=== PATIENT | female | born 1960 | race African-American/Black ===

== ENCOUNTER 2017-07-24 01:19 | Inpatient (IN) | payer SELFPAY ==
[~2017-07-24] VITALS: Ht 162.6 cm; Wt 78.0 kg
[2017-07-24 01:51] VITALS: BP 131/72; PULSE 84; TEMP 98.1; O2SAT 99
--- NOTE | 2017-07-24 05:04 | PD ---
HPI Chief Complaint: Fall Time Seen by Provider: 04:40 Travel History International Travel<30 days: No Contact w/Intl Traveler<30days: No Traveled to known affect area: No History of Present Illness HPI 57-year-old female patient presents to the ER today, states that she has had a 1 year history of lower back pains, told that she has arthritis in her hips, and states that she has difficulty getting up when she bends down to get something. 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 She denies any incontinence, fevers, or other issues. She states that it has been getting so bad that she needs help to get in and out of cars, and to get up when she bends down. She denies any head injury or other injuries. She states that she felt like her legs gave out on her, states that she has been getting weaker and weaker. Modifying Factors: None Associated Signs & Symptoms: Acute on chronic back pain, legs gave out, left hip injury and have head injury Risk Factors: Chronic back pain PFSH Past Medical History High Cholesterol: Yes Diabetes: Yes Patient Takes Glucophage: Yes Diminished Hearing: No Hypertension: Yes Social History Alcohol Use: Yes (WEEKLY ) Tobacco Use: No Substance Use: No Allergies-Medications (Allergen,Severity, Reaction): Coded Allergies: No Known Allergies (Unverified , 07/24/17) Review of Systems Except as stated in HPI: all other systems reviewed are Neg Physical Exam Narrative GENERAL: Well-developed middle-aged -[place]ian female patient currently in mild distress. Awake and oriented 3. SKIN: Focused skin assessment warm/dry. HEAD: Atraumatic. Normocephalic. EYES: Pupils equal and round. No scleral icterus. No injection or drainage. ENT: No nasal bleeding or discharge. Mucous membranes pink and moist. NECK: Trachea midline. No JVD. Supple. CARDIOVASCULAR: Regular rate and rhythm. No murmur appreciated. RESPIRATORY: No accessory muscle use. Clear to auscultation. Breath sounds equal bilaterally. GASTROINTESTINAL: Abdomen soft, non-tender, nondistended. Hepatic and splenic margins not palpable. Pelvis: Stable, mildly tender to palpation in the left hip area. MUSCULOSKELETAL: No obvious deformities. No clubbing. No cyanosis. No edema. EXTREMITIES: No clubbing, cyanosis, or edema. No joint tenderness, effusion, or edema noted. Mildly tender to palpation of the left hand dorsum without obvious contusion or lacerations. No bony tenderness or deformities.. NEUROLOGICAL: Awake and alert. No obvious cranial nerve deficits. Motor grossly within normal limits. Normal speech. PSYCHIATRIC: Appropriate mood and affect; insight and judgment normal. Data Data Last Documented VS Vital Signs Date Time Temp Pulse Resp B/P (MAP) Pulse Ox O2 Delivery O2 Flow Rate FiO2 07/24/17 01:51 98.1 84 131/72 (91) 99 Orders Orders Hand, Complete ([id number]) (07/24/17 04:40) Hip, Uni(Ap&Lat) W Ap Pelvis (07/24/17 04:40) Mri T Spine W/O Contrast (07/24/17 05:24) Mri L Spine W/O Contrast (07/24/17 05:24) Tramadol (Ultram) (07/24/17 05:30) MDM Medical Decision Making Medical Screen Exam Complete: Yes Emergency Medical Condition: Yes Medical Record Reviewed: Yes Interpretation(s) Last 24 hours Impressions Hip and Pelvis X-Ray 07/24/17439 Signed Impressions: Service Date/Time: Monday, July 24, 2017 04:58 - CONCLUSION: 1. Intact pelvis and left hip. 2. Mild bilateral hip osteoarthritis. 3. Moderate osteoarthritis of the pubic symphysis. Adryan Vee MD Hand X-Ray 07/24/17439 Signed Impressions: Service Date/Time: Monday, July 24, 2017 05:01 - CONCLUSION: Intact left hand. Adryan Vee MD Differential Diagnosis Contusions versus fractures Narrative Course X-rays not show any signs of acute injuries. MRI was ordered due to her weakness. Physician Communication Physician Communication Case is signed out to Dr. Nice at 7 AM pending MRI. If unremarkable for acute issues, can be released with follow-up to primary care doctor. Diagnosis Primary Impression: Fall Additional Impressions: Injury of left hip Acute exacerbation of chronic low back pain Condition: Stable Florentino Vega MD Jul 24, 2017 05:04
--- NOTE | 2017-07-24 05:18 | RADRPT ---
EXAM DATE/TIME: 07/24/2017 04:58 [facility] COMPARISON: No previous studies available for comparison. INDICATIONS : Fall. Left hip pain. MEDICAL HISTORY : None. SURGICAL HISTORY : None. ENCOUNTER: Initial ACUITY: 1 day PAIN SCORE: 7/10 LOCATION: Left pelvis FINDINGS: The bony pelvis is intact and has normal morphology. No subluxation or fracture of either hip. There is mild bilateral hip osteoarthritis. Mild bilateral subchondral sclerosis. There is subchondral cyst ic change of the left acetabulum. Radiographic appearance of the soft tissues within normal limits. Moderate degenerative changes of the pubic symphysis. CONCLUSION: 1. Intact pelvis and left hip. 2. Mild bilateral hip osteoarthritis. 3. Moderate osteoarthritis of the pubic symphysis. Adryan Vee MD on July 24, 2017 at 5:15 Board Certified Radiologist. This report was verified electronically.
--- NOTE | 2017-07-24 05:19 | RADRPT ---
EXAM DATE/TIME: 07/24/2017 05:01 [facility] COMPARISON: No previous studies available for comparison. INDICATIONS : Fall. Left hand pain. MEDICAL HISTORY : None. SURGICAL HISTORY : None. ENCOUNTER: Initial ACUITY: 1 day PAIN SCORE: 6/10 LOCATION: Left upper extremity FINDINGS: Three view examination of the left hand demonstrates no soft tissue swelling, dislocation, or fractur e. The carpal bones appear intact. The interphalangeal and metacarpophalangeal joints are intact. Bony mineralization is normal. CONCLUSION: Intact left hand. Adryan Vee MD on July 24, 2017 at 5:17 Board Certified Radiologist. This report was verified electronically.
[2017-07-24] MEDS ORDERED: traMADol HCL 50 MG TAB PO ONE (05:30)
--- NOTE | 2017-07-24 07:07 | PD ---
Physical Exam Date Seen by Provider: Jul 24, 2017 Time Seen by Provider: 07:06 Narrative The patient is a 57 year-old female who was initially evaluated by the previous physician. Please refer to the initial history, physical, diagnostic evaluation , treatment modality plan. The patient was signed out at 7 AM with MRI of the T -spine and L-spine pending. Data Data Last Documented VS Vital Signs Date Time Temp Pulse Resp B/P (MAP) Pulse Ox O2 Delivery O2 Flow Rate FiO2 07/24/17 12:54 18 07/24/17 12:09 138/78 (98) 07/24/17 07:14 83 99 Room Air 07/24/17 01:51 98.1 Orders Orders Hand, Complete ([id number]) (07/24/17 04:40) Hip, Uni(Ap&Lat) W Ap Pelvis (07/24/17 04:40) Mri T Spine W/O Contrast (07/24/17 05:24) Mri L Spine W/O Contrast (07/24/17 05:24) Tramadol (Ultram) (07/24/17 05:30) Complete Blood Count With Diff (07/24/17 07:05) Comprehensive Metabolic Panel (07/24/17 07:05) Urinalysis - C+S If Indicated (07/24/17 07:05) Creatine Kinase (Cpk) (07/24/17 07:05) CKMB (07/24/17 08:55) CKMB% (07/24/17 08:55) Sodium Chlor 0.9% 1000 Ml Inj (Ns 1000 M (07/24/17 13:00) Labs Laboratory Tests Test 07/24/17 08:55 07/24/17 09:00 White Blood Count 4.1 TH/MM3 Red Blood Count 3.94 MIL/MM3 Hemoglobin 12.5 GM/DL Hematocrit 37.5 % Mean Corpuscular Volume 95.2 FL Mean Corpuscular Hemoglobin 31.6 PG Mean Corpuscular Hemoglobin Concent 33.2 % Red Cell Distribution Width 16.2 % Platelet Count 305 TH/MM3 Mean Platelet Volume 7.6 FL Neutrophils (%) (Auto) 43.8 % Lymphocytes (%) (Auto) 49.6 % Monocytes (%) (Auto) 5.5 % Eosinophils (%) (Auto) 0.7 % Basophils (%) (Auto) 0.4 % Neutrophils # (Auto) 1.8 TH/MM3 Lymphocytes # (Auto) 2.0 TH/MM3 Monocytes # (Auto) 0.2 TH/MM3 Eosinophils # (Auto) 0.0 TH/MM3 Basophils # (Auto) 0.0 TH/MM3 CBC Comment DIFF FINAL Differential Comment Blood Urea Nitrogen 7 MG/DL Creatinine 0.45 MG/DL Random Glucose 117 MG/DL Total Protein 7.3 GM/DL Albumin 3.5 GM/DL Calcium Level 8.9 MG/DL Alkaline Phosphatase 71 U/L Aspartate Amino Transf (AST/SGOT) 151 U/L Alanine Aminotransferase (ALT/SGPT) 129 U/L Total Bilirubin 0.4 MG/DL Sodium Level 144 MEQ/L Potassium Level 3.5 MEQ/L Chloride Level 108 MEQ/L Carbon Dioxide Level 26.6 MEQ/L Anion Gap 9 MEQ/L Estimat Glomerular Filtration Rate 174 ML/MIN Total Creatine Kinase 87529 U/L Creatine Kinase MB 412.2 NG/ML Creatine Kinase MB % 3.6 % Urine Color YELLOW Urine Turbidity CLEAR Urine pH 5.5 Urine Specific [place] 1.021 Urine Protein NEG mg/dL Urine Glucose (UA) NEG mg/dL Urine Ketones NEG mg/dL Urine Occult Blood NEG Urine Nitrite NEG Urine Bilirubin NEG Urine Urobilinogen LESS THAN 2.0 MG/DL Urine Leukocyte Esterase NEG Urine RBC LESS THAN 1 /hpf Urine WBC 2 /hpf Urine Squamous Epithelial Cells 2 /hpf Urine Bacteria OCC /hpf Urine Mucus MOD /lpf Microscopic Urinalysis Comment CULT NOT INDICATED MDM Medical Record Reviewed: Yes Supervised Visit with SHERON: No Interpretation(s) Laboratory Tests Test 07/24/17 08:55 07/24/17 09:00 White Blood Count 4.1 TH/MM3 Red Blood Count 3.94 MIL/MM3 Hemoglobin 12.5 GM/DL Hematocrit 37.5 % Mean Corpuscular Volume 95.2 FL Mean Corpuscular Hemoglobin 31.6 PG Mean Corpuscular Hemoglobin Concent 33.2 % Red Cell Distribution Width 16.2 % Platelet Count 305 TH/MM3 Mean Platelet Volume 7.6 FL Neutrophils (%) (Auto) 43.8 % Lymphocytes (%) (Auto) 49.6 % Monocytes (%) (Auto) 5.5 % Eosinophils (%) (Auto) 0.7 % Basophils (%) (Auto) 0.4 % Neutrophils # (Auto) 1.8 TH/MM3 Lymphocytes # (Auto) 2.0 TH/MM3 Monocytes # (Auto) 0.2 TH/MM3 Eosinophils # (Auto) 0.0 TH/MM3 Basophils # (Auto) 0.0 TH/MM3 CBC Comment DIFF FINAL Differential Comment Blood Urea Nitrogen 7 MG/DL Creatinine 0.45 MG/DL Random Glucose 117 MG/DL Total Protein 7.3 GM/DL Albumin 3.5 GM/DL Calcium Level 8.9 MG/DL Alkaline Phosphatase 71 U/L Aspartate Amino Transf (AST/SGOT) 151 U/L Alanine Aminotransferase (ALT/SGPT) 129 U/L Total Bilirubin 0.4 MG/DL Sodium Level 144 MEQ/L Potassium Level 3.5 MEQ/L Chloride Level 108 MEQ/L Carbon Dioxide Level 26.6 MEQ/L Anion Gap 9 MEQ/L Estimat Glomerular Filtration Rate 174 ML/MIN Total Creatine Kinase 28737 U/L Creatine Kinase MB 412.2 NG/ML Creatine Kinase MB % 3.6 % Urine Color YELLOW Urine Turbidity CLEAR Urine pH 5.5 Urine Specific [place] 1.021 Urine Protein NEG mg/dL Urine Glucose (UA) NEG mg/dL Urine Ketones NEG mg/dL Urine Occult Blood NEG Urine Nitrite NEG Urine Bilirubin NEG Urine Urobilinogen LESS THAN 2.0 MG/DL Urine Leukocyte Esterase NEG Urine RBC LESS THAN 1 /hpf Urine WBC 2 /hpf Urine Squamous Epithelial Cells 2 /hpf Urine Bacteria OCC /hpf Urine Mucus MOD /lpf Microscopic Urinalysis Comment CULT NOT INDICATED Last Impressions Thoracic Spine MRI 07/24/17523 Signed Impressions: Service Date/Time: Monday, July 24, 2017 06:18 - CONCLUSION: 1. Mild degenerative disease T6-T7 2. No evidence of significant disc protrusion, spinal stenosis, bony abnormality or spinal cord abnormalities. Santi De Leon MD Lumbar Spine MRI 07/24/17 0524 Signed Impressions: Service Date/Time: Monday, July 24, 2017 06:18 - CONCLUSION: Normal examination. Santi De Leon MD Hip and Pelvis X-Ray 07/24/17439 Signed Impressions: Service Date/Time: Monday, July 24, 2017 04:58 - CONCLUSION: 1. Intact pelvis and left hip. 2. Mild bilateral hip osteoarthritis. 3. Moderate osteoarthritis of the pubic symphysis. Adryan Vee MD Hand X-Ray 07/24/17439 Signed Impressions: Service Date/Time: Monday, July 24, 2017 05:01 - CONCLUSION: Intact left hand. Adryan Vee MD Differential Diagnosis Differential diagnosis includes cauda equina, herniated disc, chronic back pain , disability, UTI, hyponatremia, acute renal failure. Narrative Course The patient is a 57 year-old female was initially evaluated by the previous physician. Please refer to the initial history, physical, diagnostic evaluation , treatment modality plan. The patient was signed out at 7 AM with MRI of the lumbar spine and thoracic spine pending. The patient's x-rays and MRIs were reviewed, no significant changes except for degenerative changes. However, she has pain and weakness of the hands bilaterally which she attributed arthritis. However, she has been having increasing symptoms. Therefore, laboratory evaluation was performed, the patient had an elevated CPK of greater than 11, 000. Unsure if this is related to polymyositis/myositis versus polymyalgia rheumatica with her weakness. Patient may need sedimentation rate and CRP obtained as well as rheumatology evaluation. Patient was administered 1 L of IV fluids. The patient will be admitted. Physician Communication Physician Communication I discussed the patient with Dr. Hills who agrees with admission. Diagnosis Primary Impression: Fall Qualified Codes: W19.XXXA - Unspecified fall, initial encounter Additional Impressions: Injury of left hip Qualified Codes: S79.912A - Unspecified injury of left hip, initial encounter Acute exacerbation of chronic low back pain Rhabdomyolysis Qualified Codes: T79.6XXA - Traumatic ischemia of muscle, initial encounter Admitting Information Admitting Physician Requests: Admit Condition: Stable Sherman Nice MD Jul 24, 2017 07:07
--- NOTE | 2017-07-24 07:19 | RADRPT ---
EXAM DATE/TIME: 07/24/2017 06:18 [facility] COMPARISON: No previous studies available for comparison. INDICATIONS : Weakness. Back pain. Left sided weakness. MEDICAL HISTORY : Diabetes mellitus type 2. SURGICAL HISTORY : Cholecystectomy. ENCOUNTER: Initial ACUITY: > 1 year PAIN SCORE: 8/10 LOCATION: Paraspinal TECHNIQUE: Multiplanar multisequence MRI of the thoracic spine was performed. FINDINGS: VERTEBRA: Normal vertebral body height. Homogeneous marrow signal. ALIGNMENT: Normal. CORD: Normal position and configuration. T1-T2: Normal. T2-T3: The thecal sac has a normal diameter. No evidence of disc bulge or protrusion. T3-T4: The thecal sac has a normal diameter. No evidence of disc bulge or protrusion. T4-T5: The thecal sac has a normal diameter. No evidence of disc bulge or protrusion. T5-T6: The thecal sac has a normal diameter. No evidence of disc bulge or protrusion. T6-T7: Mild degenerative disc disease. Small left paracentral disc osteophyte complex without significant ma ss effect is noted. T7-T8: The thecal sac has a normal diameter. No evidence of disc bulge or protrusion. T8-T9: The thecal sac has a normal diameter. No evidence of disc bulge or protrusion. T9-T10: The thecal sac has a normal diameter. No evidence of disc bulge or protrusion. T10-T11: The thecal sac has a normal diameter. No evidence of disc bulge or protrusion. T11-T12: The thecal sac has a normal diameter. No evidence of disc bulge or protrusion. T12-L1: The thecal sac has a normal diameter. No evidence of disc bulge or protrusion. CONCLUSION: 1. Mild degenerative disease T6-T7 2. No evidence of significant disc protrusion, spinal stenosis, bony abnormality or spinal cord abnor malities. Santi De Leon MD on July 24, 2017 at 7:14 Board Certified Radiologist. This report was verified electronically.
--- NOTE | 2017-07-24 07:20 | RADRPT ---
EXAM DATE/TIME: 07/24/2017 06:18 [facility] COMPARISON: No previous studies available for comparison. INDICATIONS : Weakness. Back pain. Left sided weakness. MEDICAL HISTORY : Diabetes mellitus type 2. SURGICAL HISTORY : Cholecystectomy. ENCOUNTER: Initial ACUITY: > 1 year PAIN SCORE: 8/10 LOCATION: Paraspinal TECHNIQUE: Multiplanar multisequence MRI of the lumbar spine was performed without contrast. FINDINGS: The most caudal appearing lumbar vertebra is numbered as L5. VERTEBRAE: Homogeneous signal. Normal alignment. CONUS: Normal level and configuration. T12-L1: The thecal sac has a normal diameter. No evidence of disc bulge or protrusion. The neural foramina are patent bilaterally. L1-L2: The thecal sac has a normal diameter. No evidence of disc bulge or protrusion. The neural foramina are patent bilaterally. L2-L3: The thecal sac has a normal diameter. No evidence of disc bulge or protrusion. The neural foramina are patent bilaterally. L3-L4: The thecal sac has a normal diameter. No evidence of disc bulge or protrusion. The neural foramina are patent bilaterally. L4-L5: The thecal sac has a normal diameter. No evidence of disc bulge or protrusion. The neural foramina are patent bilaterally. L5-S1: The thecal sac has a normal diameter. No evidence of disc bulge or protrusion. The neural foramina are patent bilaterally. CONCLUSION: Normal examination. Santi De Leon MD on July 24, 2017 at 7:18 Board Certified Radiologist. This report was verified electronically.
[2017-07-24 09:24] LABS: AUTOMATED NEUTROPHIL # 1.8 TH/MM3 (1.8-7.7); BASOPHIL % 0.4 % (0.0-2.0); EOSINOPHIL % 0.7 % (0.0-4.0); HEMATOCRIT 37.5 % (35.0-46.0); HEMOGLOBIN 12.5 GM/DL (11.6-15.3); LYMPH % 49.6 % (9.0-44.0); MEAN CELL VOLUME 95.2 FL (80.0-100.0); MEAN CORPUSCULAR HEMOGLOBIN 31.6 PG (27.0-34.0); MEAN CORPUSCULAR HGB CONC 33.2 % (32.0-36.0); MEAN PLATELET VOLUME 7.6 FL (7.0-11.0); MONO % 5.5 % (0.0-8.0); MONOCYTE # 0.2 TH/MM3 (0-0.9); NEUT % 43.8 % (16.0-70.0); PLATELET COUNT 305 TH/MM3 (150-450); RED BLOOD COUNT 3.94 MIL/MM3 (4.00-5.30); RED CELL DISTRIBUTION WIDTH 16.2 % (11.6-17.2); WHITE BLOOD COUNT 4.1 TH/MM3 (4.0-11.0)
[2017-07-24 09:30] LABS: BACTERIA, URINE OCC /hpf; BILIRUBIN, URINE NEG (NEG); BLOOD, URINE NEG (NEG); GLUCOSE,URINE NEG (NEG); KETONE, URINE NEG (NEG); MUCUS URINE MOD /lpf (OCC); NITRITE,URINE NEG (NEG); PH, URINE 5.5 (5.0-8.5); SQUAMOUS EPITHELIAL CELL URINE 2 /hpf (0-5); URINE COLOR YELLOW (YELLW/STRAW); URINE LEUKOCYTE ESTERASE NEG (NEG)
[2017-07-24 09:40] LABS: ALBUMIN 3.5 GM/DL (3.4-5.0); AST (GOT) 151 U/L (15-37); BICARBONATE 26.6 MEQ/L (21.0-32.0); BLOOD UREA NITROGEN 7 MG/DL (7-18); CALCIUM 8.9 MG/DL (8.5-10.1); CHLORIDE 108 MEQ/L (98-107); CREATININE 0.45 MG/DL (0.50-1.00); GLOMERULAR FILTRATION RATE 174 ML/MIN (>89); GLUCOSE,RANDOM 117 MG/DL (74-106); SODIUM (NA) 144 MEQ/L (136-145)
[2017-07-24 09:41] LABS: ALT (GPT) 129 U/L (10-53)
[2017-07-24 10:06] LABS: ALKALINE PHOSPHATASE 71 U/L (45-117); TOTAL BILIRUBIN ADULT 0.4 MG/DL (0.2-1.0); TOTAL PROTEIN 7.3 GM/DL (6.4-8.2)
[2017-07-24 12:09] VITALS: BP 138/78
[2017-07-24] MEDS ORDERED: LACTULOSE SYRUP 20 GM/30 ML CUP PO PRN (13:00)
[2017-07-24] MEDS ORDERED: MORPHINE SULFATE 2 MG/ML INJ IV PUSH PRN (13:00)
[2017-07-24] MEDS ORDERED: ONDANSETRON HCL 4 MG/2 ML VIAL IVP PRN (13:00)
[2017-07-24] MEDS ORDERED: SODIUM CHLORIDE 0.9% FLUSH 10 ML FLUSH IV FLUSH PRN (13:00)
[2017-07-24] MEDS ORDERED: BISACODYL 10 MG SUPP RECTAL PRN (13:00)
[2017-07-24] MEDS ORDERED: MAGNESIUM HYDROXIDE SUSP 30 ML CUP PO PRN (13:00)
[2017-07-24] MEDS ORDERED: GLUCAGON 1 MG/ML VIAL OTHER PRN (13:00)
[2017-07-24] MEDS ORDERED: DEXTROSE 50% IN WATER 50 ML VIAL(D50) IV PUSH PRN (13:00)
[2017-07-24] MEDS ORDERED: SODIUM CHLOR 0.9% 1000 ML INJ 1,000 ML IV ONE (13:00)
[2017-07-24] MEDS ORDERED: SENNOSIDES 8.6 MG TAB PO PRN (13:00)
[2017-07-24] MEDS ORDERED: traMADol HCL 50 MG TAB PO PRN ×2 (13:00)
[2017-07-24] MEDS ORDERED: NALOXONE HCL 0.4 MG/ML AMP IV PUSH PRN (13:00)
[2017-07-24] MEDS ORDERED: POTASSIUM CHLORIDE 20 MEQ CONTROLLED RELEASE TAB PO ONE (13:15)
[2017-07-24] MEDS: HEPARIN SODIUM - SQ 10,000 UNITS/ML VIAL SQ SCH (13:34)
--- NOTE | 2017-07-24 14:37 | HHI.HP ---
HPI Service [facility] Primary Care Physician Dante Cardoza D.O. Admission Diagnosis rhabdomyolysis, rule out myositis Diagnoses: Chief Complaint: back pain, weakness Travel History International Travel<30 Days: No Contact w/Intl Traveler <30 Da: No Traveled to Known Affected Are: No History of Present Illness Written by Steff Cruz, acting as scribe for Dr. Hills on 07/24/17 at 14: 35. 57-year-old female with HTN, HLD, DM, presents with 1 year history of worsening low back pain, leg weakness, and recent fall. The patient reports over the past year she's had low back and hip pains, with loss of strength of the bilateral legs. 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 A month ago she picked up a tissue off the floor, and had difficulty standing back up. She saw her PCP Dr. Cardoza as outpatient at that time, had xrays done, and was told she has osteoarthritis in bilateral hips. Over the past month she has been having trouble getting in and out of a car. She states she has to leaf size picker her legs with her arms in order to transition in and out of the car. The patient states last night she went out to dinner with her fiance, had a few cocktails, then had a step up however her legs were unable to do so and they just gave out on her. She states she fell to ground onto her left hip and left hand. She reports continued diffuse low back pain, but mostly complains of bilateral leg weakness. She also reports noticing recent numbness down the left lateral leg. Denies any recent weight loss or specific joint pains. Review of Systems Except as stated in HPI: all other systems reviewed are Neg Past Family Social History Past Medical History Hyperlipidemia Hypertension Diabetes Mellitus Past Surgical History Laparoscopic Cholecystectomy Reported Medications Unknown, RN to update med rec Allergies: Coded Allergies: No Known Allergies (Unverified , 07/24/17) Active Ordered Medications Current Medications Medications (Trade) Dose Ordered Sig/Debbie Route Start Time Stop Time Status Last Admin (D50w (Vial) Inj) 50 ml UNSCH PRN IV PUSH 07/24/17 13:00 (Glucagon Inj) 1 mg UNSCH PRN OTHER 07/24/17 13:00 (NovoLOG SUPPLEMENTAL SCALE) 1 ACHS SLIDING SCALE SQ 07/24/17 17:00 Sodium Bicarbonate 100 meq/Potassium Chloride 20 meq/ Sodium Chloride 1,110 ml @ 100 mls/hr Q11H6M IV 07/24/17 14:00 (NS Flush) 2 ml UNSCH PRN IV FLUSH 07/24/17 13:00 (NS Flush) 2 ml BID IV FLUSH 07/24/17 21:00 (Zofran Inj) 4 mg Q6H PRN IVP 07/24/17 13:00 (Heparin Inj) 5,000 units Q12H SQ 07/24/17 13:00 07/24/17 13:34 (Morphine Inj) 1 mg Q3H PRN IV PUSH 07/24/17 13:00 (Ultram) 50 mg Q4H PRN PO 07/24/17 13:00 (Ultram) 100 mg Q4H PRN PO 07/24/17 13:00 (Narcan Inj) 0.4 mg UNSCH PRN IV PUSH 07/24/17 13:00 (Flaquita-Colace) 1 tab BID PO 07/24/17 21:00 (Milk Of Magnesia Liq) 30 ml Q12H PRN PO 07/24/17 13:00 (Senokot) 17.2 mg Q12H PRN PO 07/24/17 13:00 (Dulcolax Supp) 10 mg DAILY PRN RECTAL 07/24/17 13:00 (Lactulose Liq) 30 ml DAILY PRN PO 07/24/17 13:00 Family History mother with COPD and diabetes Social History Drinks alcohol, 1 beer daily, and occasional few cocktails. Denies tobacco use or illicit drug use. Physical Exam Vital Signs Vital Signs Date Time Temp Pulse Resp B/P (MAP) Pulse Ox O2 Delivery O2 Flow Rate FiO2 07/24/17 14:18 07/24/17 12:54 18 07/24/17 12:09 138/78 (98) 07/24/17 07:14 83 18 99 Room Air 07/24/17 01:51 98.1 84 131/72 (91) 99 Physical Exam GENERAL: Well-nourished, well-developed middle aged female patient in [facility]. SKIN: Warm and dry. No rash. HEAD: Normocephalic. Atraumatic. EYES: Pupils equal and round. No scleral icterus. No injection or drainage. ENT: No nasal bleeding or discharge. Mucous membranes pink and moist. NECK: Supple. Trachea midline. CARDIOVASCULAR: Regular rate and rhythm. S1, S2 noted. No murmur appreciated. RESPIRATORY: No accessory muscle use. Clear to auscultation. Breath sounds equal bilaterally. GASTROINTESTINAL: Abdomen soft, non-tender, nondistended. Normoactive bowel sounds x4. MUSCULOSKELETAL: No obvious deformities. Extremities without clubbing, cyanosis , or edema. C-T-L spine nontender to palpation, no bony point or paraspinous muscle tenderness. NEUROLOGICAL: Awake and alert. No obvious cranial nerve deficits. Motor grossly within normal limits. 5/5 muscle strength in bilateral upper and lower extremities, however with generalized weakness, difficulty sitting herself up in bed. Normal speech. PSYCHIATRIC: Appropriate mood and affect; insight and judgment normal. Laboratory Laboratory Tests Test 07/24/17 08:55 07/24/17 09:00 White Blood Count 4.1 Red Blood Count 3.94 Hemoglobin 12.5 Hematocrit 37.5 Mean Corpuscular Volume 95.2 Mean Corpuscular Hemoglobin 31.6 Mean Corpuscular Hemoglobin Concent 33.2 Red Cell Distribution Width 16.2 Platelet Count 305 Mean Platelet Volume 7.6 Neutrophils (%) (Auto) 43.8 Lymphocytes (%) (Auto) 49.6 Monocytes (%) (Auto) 5.5 Eosinophils (%) (Auto) 0.7 Basophils (%) (Auto) 0.4 Neutrophils # (Auto) 1.8 Lymphocytes # (Auto) 2.0 Monocytes # (Auto) 0.2 Eosinophils # (Auto) 0.0 Basophils # (Auto) 0.0 CBC Comment DIFF FINAL Differential Comment Blood Urea Nitrogen 7 Creatinine 0.45 Random Glucose 117 Total Protein 7.3 Albumin 3.5 Calcium Level 8.9 Alkaline Phosphatase 71 Aspartate Amino Transf (AST/SGOT) 151 Alanine Aminotransferase (ALT/SGPT) 129 Total Bilirubin 0.4 Sodium Level 144 Potassium Level 3.5 Chloride Level 108 Carbon Dioxide Level 26.6 Anion Gap 9 Estimat Glomerular Filtration Rate 174 Total Creatine Kinase 98196 Creatine Kinase MB 412.2 Creatine Kinase MB % 3.6 Urine Color YELLOW Urine Turbidity CLEAR Urine pH 5.5 Urine Specific Friend 1.021 Urine Protein NEG Urine Glucose (UA) NEG Urine Ketones NEG Urine Occult Blood NEG Urine Nitrite NEG Urine Bilirubin NEG Urine Urobilinogen LESS THAN 2.0 Urine Leukocyte Esterase NEG Urine RBC LESS THAN 1 Urine WBC 2 Urine Squamous Epithelial Cells 2 Urine Bacteria OCC Urine Mucus MOD Microscopic Urinalysis Comment CULT NOT INDICATED Result Diagram: 07/24/1785407/24/17854 Imaging Last Impressions Thoracic Spine MRI 07/24/17523 Signed Impressions: Service Date/Time: Monday, July 24, 2017 06:18 - CONCLUSION: 1. Mild degenerative disease T6-T7 2. No evidence of significant disc protrusion, spinal stenosis, bony abnormality or spinal cord abnormalities. Santi De Leon MD Lumbar Spine MRI 07/24/17523 Signed Impressions: Service Date/Time: Monday, July 24, 2017 06:18 - CONCLUSION: Normal examination. Santi De Leon MD Hip and Pelvis X-Ray 07/24/17439 Signed Impressions: Service Date/Time: Monday, July 24, 2017 04:58 - CONCLUSION: 1. Intact pelvis and left hip. 2. Mild bilateral hip osteoarthritis. 3. Moderate osteoarthritis of the pubic symphysis. Adryan Vee MD Hand X-Ray 07/24/17439 Signed Impressions: Service Date/Time: Monday, July 24, 2017 05:01 - CONCLUSION: Intact left hand. Adryan Vee MD [place] VTE Risk Assessment Caprini VTE Risk Assessment: No/Low Risk (score <= 1) Caprini Risk Assessment Model Point Value = 1 Point Value = 2 Point Value = 3 Point Value = 5 Age 41-60 Minor surgery BMI > 25 kg/m2 Swollen legs Varicose veins or History of unexplained or recurrent spontaneous Oral contraceptives or hormone replacement Sepsis (< 1 month) Serious lung disease, including pneumonia (< 1 month) Abnormal pulmonary function Acute myocardial infarction Congestive heart failure (< 1 month) History of inflammatory bowel disease Medical patient at bed rest Age 61-74 Arthroscopic surgery Major open surgery (> 45 min) Laparoscopic surgery (> 45 min) Malignancy Confined to bed (> 72 hours) Immobilizing plaster cast Central venous access Age >= 75 History of VTE Family history of VTE Factor V Leiden Prothrombin [id number] Lupus anticoagulant Anticardiolipin antibodies Elevated serum homocysteine Heparin-induced thrombocytopenia Other congenital or acquired thrombophilia Stroke (< 1 month) Elective arthroplasty Hip, pelvis, or leg fracture Acute spinal cord injury (< 1 month) Prophylaxis Regimen Total Risk Factor Score Risk Level Prophylaxis Regimen 0-1 Low Early ambulation 2 Moderate Order ONE of the following: *Sequential Compression Device (SCD) *Heparin 5000 units SQ BID 3-4 Higher Order ONE of the following medications: *Heparin 5000 units SQ TID *Enoxaparin/Lovenox 40 mg SQ daily (WT < 150 kg, CrCl > 30 mL/min) *Enoxaparin/Lovenox 30 mg SQ daily (WT < 150 kg, CrCl > 10-29 mL/min) *Enoxaparin/Lovenox 30 mg SQ BID (WT < 150 kg, CrCl > 30 mL/min) AND/OR *Sequential Compression Device (SCD) 5 or more Highest Order ONE of the following medications: *Heparin 5000 units SQ TID (Preferred with Epidurals) *Enoxaparin/Lovenox 40 mg SQ daily (WT < 150 kg, CrCl > 30 mL/min) *Enoxaparin/Lovenox 30 mg SQ daily (WT < 150 kg, CrCl > 10-29 mL/min) *Enoxaparin/Lovenox 30 mg SQ BID (WT < 150 kg, CrCl > 30 mL/min) AND *Sequential Compression Device (SCD) Assessment and Plan Problem List: (1) Rhabdomyolysis ICD Code: M62.82 - Rhabdomyolysis Status: Acute (2) Fall ICD Code: W19.XXXA - Unspecified fall, initial encounter Status: Acute Assessment and Plan 57-year-old female with HTN, HLD, DM, presents with 1 year history of worsening low back pain, leg weakness, and recent fall. Bilateral proximal lower Extremity Weakness and Fall: unclear etiology, rule out myositis. -T-spine MRI reviewed, shows mild degenerative disease T6-7; no other acute abnormalities -L-spine MRI reviewed, normal -Hip/Pelvis xray reviewed, show mild bilateral osteoarthritis and moderate osteoarthritis of pubic symphysis -Check ESR, CRP, TSH, B12, Vitamin D. Consider neurology consult -Consult PT -Fall precautions Rhabdomyolysis: CPK 31777. Suspect secondary to recent fall -Continue IVF with NS at 100cc/hr -Monitor CPK and renal function Transaminitis: patient with elevated LFTs, no previous labs to compare. Suspect secondary to patient's daily alcohol use and rhabdomyolysis. -avoid hepatotoxins -repeat LFTs -counseled on alcohol cessation -outpatient f/up Hyperlipidemia/Hypertension: BP currently well controlled. -unclear if patient takes meds at home, RN to update med rec Diabetes Mellitus: -Monitor accu-checks and cover with SSI DVT Prophylaxis: Heparin sq Discussed Condition With Patient, RN, Dr. Nice This note was transcribed by bernice Cruz. I, Dr. Curtis Hills personally performed the history, physical exam, and medical decision making; and confirmed the accuracy of the information in the transcribed note. Authenticated by Dr. Curtis Hills on 07/24/17 at 14:45. Problem Qualifiers (1) Rhabdomyolysis: Qualified Codes: T79.6XXA - Traumatic ischemia of muscle, initial encounter (2) Fall: Qualified Codes: W19.XXXA - Unspecified fall, initial encounter Steff Cruz PA-C Jul 24, 2017 14:37 Curtis Hills MD Jul 24, 2017 14:45
[2017-07-24 14:55] VITALS: BP 117/75; PULSE 76; RESP 16; TEMP 98; O2SAT 95
[2017-07-24] MEDS: SODIUM BICARBONATE 8.4% INJ 100 MEQ, POTASSIUM CHLORIDE INJ 20 MEQ in SODIUM CHLOR 0.45... IV SCH (15:23)
[2017-07-24 15:56] LABS: C-REACTIVE PROTEIN 0.29 MG/DL (0.00-0.30)
[2017-07-24] MEDS ORDERED: HALOPERIDOL LACTATE 5 MG/ML AMP IM PRN (16:30)
[2017-07-24] MEDS ORDERED: LORazepam 2 MG/ML VIAL IV PUSH PRN ×4 (16:30)
[2017-07-24] MEDS ORDERED: LORazepam 2 MG TAB PO PRN (16:30)
[2017-07-24] MEDS ORDERED: LORazepam 1 MG TAB PO PRN (16:30)
[2017-07-24] MEDS ORDERED: FLUMAZENIL 0.5 MG/5 ML VIAL IV PUSH PRN (16:30)
[2017-07-24] MEDS: INSULIN ASPART SUPPLEMENTAL SCALE SQ SCH ×2 (17:00→21:00)
[2017-07-24 20:15] VITALS: BP 138/82; PULSE 82; RESP 16; TEMP 97.7; O2SAT 98
[2017-07-24] MEDS: SODIUM CHLORIDE 0.9% FLUSH 10 ML FLUSH IV FLUSH SCH (21:10)
[2017-07-24] MEDS: DOCUSATE SODIUM 50 MG/SENNA 8.6 MG TAB PO SCH (21:10)
[2017-07-24] MEDS: THIAMINE INJ 500 MG in SODIUM CHLOR 0.9% 250 ML INJ 250 ML IV SCH (21:10)
[2017-07-24] MEDS ORDERED: ATOR20TA15 PO (21:17)
[2017-07-24] MEDS ORDERED: GLIM1TAB PO (21:17)
[2017-07-24] MEDS ORDERED: AMLO2.5T PO (21:17)
[2017-07-24] MEDS ORDERED: METF1000 PO (21:17)
[2017-07-25] VITALS (8 sets, daily range): BP systolic 110–123; BP diastolic 67–79; PULSE 73–86; RESP 16–20; TEMP 96.8–99.2; O2SAT 95–100
[2017-07-25] MEDS: HEPARIN SODIUM - SQ 10,000 UNITS/ML VIAL SQ SCH ×2 (00:58→17:02)
[2017-07-25] MEDS: THIAMINE INJ 500 MG in SODIUM CHLOR 0.9% 250 ML INJ 250 ML IV SCH ×3 (04:52→12:39)
--- NOTE | 2017-07-25 06:42 | HHI.PR ---
Subjective Remarks Follow-up rhabdomyolysis. Patient doing better still weak in her proximal muscles needing help when she gets up discussed with nursing and physical therapy. Objective Vitals Vital Signs Date Time Temp Pulse Resp B/P (MAP) Pulse Ox O2 Delivery O2 Flow Rate FiO2 07/25/17 05:10 96.8 73 18 119/79 (92) 95 07/25/17 01:11 97.5 74 16 118/71 (87) 97 07/24/17 20:15 97.7 82 16 138/82 (100) 98 07/24/17 15:45 Room Air 07/24/17 14:55 98.0 76 16 117/75 (89) 95 07/24/17 14:18 07/24/17 12:54 18 07/24/17 12:09 138/78 (98) 07/24/17 07:14 83 18 99 Room Air I/O 07/24/17 07/24/17 07/24/17 07/25/17 07/25/17 07/25/17 07:00 15:00 23:00 07:00 15:00 23:00 Intake Total 1000 ml Balance 1000 ml Intake IV Total 1000 ml Result Diagram: 07/24/17 0855 07/24/17 0855 Imaging Last Impressions Thoracic Spine MRI 07/24/17523 Signed Impressions: Service Date/Time: Monday, July 24, 2017 06:18 - CONCLUSION: 1. Mild degenerative disease T6-T7 2. No evidence of significant disc protrusion, spinal stenosis, bony abnormality or spinal cord abnormalities. Santi De Leon MD Lumbar Spine MRI 07/24/1724 Signed Impressions: Service Date/Time: Monday, July 24, 2017 06:18 - CONCLUSION: Normal examination. Santi De Leon MD Hip and Pelvis X-Ray 07/24/170 Signed Impressions: Service Date/Time: Monday, July 24, 2017 04:58 - CONCLUSION: 1. Intact pelvis and left hip. 2. Mild bilateral hip osteoarthritis. 3. Moderate osteoarthritis of the pubic symphysis. Adryan Vee MD Hand X-Ray 07/24/17 0440 Signed Impressions: Service Date/Time: Monday, July 24, 2017 05:01 - CONCLUSION: Intact left hand. Adryan Vee MD Objective Remarks GENERAL: Well-nourished, well-developed middle aged female patient in [facility]. SKIN: Warm and dry. No rash. CARDIOVASCULAR: Regular rate and rhythm. S1, S2 noted. No murmur appreciated. RESPIRATORY: No accessory muscle use. Clear to auscultation. Breath sounds equal bilaterally. GASTROINTESTINAL: Abdomen soft, non-tender, nondistended. Normoactive bowel sounds x4. MUSCULOSKELETAL: No obvious deformities. Extremities without clubbing, cyanosis , or edema. C-T-L spine nontender to palpation, no bony point or paraspinous muscle tenderness. NEUROLOGICAL: Awake and alert. No obvious cranial nerve deficits. Motor grossly within normal limits. 5/5 muscle strength in bilateral upper and lower extremities, however with generalized weakness, difficulty sitting herself up in bed. Normal speech. PSYCHIATRIC: Appropriate mood and affect; insight and judgment normal. Procedures None A/P Problem List: (1) Rhabdomyolysis ICD Code: M62.82 - Rhabdomyolysis Status: Acute (2) Fall ICD Code: W19.XXXA - Unspecified fall, initial encounter Status: Acute Assessment and Plan 57-year-old female with HTN, HLD, DM, presents with 1 year history of worsening low back pain, leg weakness, and recent fall. Bilateral proximal lower Extremity Weakness and Fall: unclear etiology, rule out myositis. -T-spine MRI reviewed, shows mild degenerative disease T6-7; no other acute abnormalities -L-spine MRI reviewed, normal -Hip/Pelvis xray reviewed, show mild bilateral osteoarthritis and moderate osteoarthritis of pubic symphysis -Unremarkable ESR, CRP, TSH, B12. Consider neurology consult -Consult PT, recommended outpatient physical therapy -Fall precautions Rhabdomyolysis: CPK 13992. Suspect secondary to recent fall. This is improving but still significantly elevated almost 9000 -Continue IVF with NS at 100cc/hr -Monitor CPK and renal function Transaminitis: patient with elevated LFTs, no previous labs to compare. Suspect secondary to patient's daily alcohol use and rhabdomyolysis. A symptomatic -avoid hepatotoxins -repeat LFTs -counseled on alcohol cessation -outpatient f/up Hyperlipidemia/Hypertension: BP currently well controlled. -Hold Lipitor secondary to transaminitis. Restart Norvasc Diabetes Mellitus: -Monitor accu-checks and cover with SSI. Hold hypoglycemics for now Vitamin D deficiency. Start vitamin D 1000 IU daily repeat level in 3 months DVT Prophylaxis: Heparin sq Discharge Planning Possible discharge in the morning pending improvement of CPK levels Problem Qualifiers (1) Rhabdomyolysis: Qualified Codes: T79.6XXA - Traumatic ischemia of muscle, initial encounter (2) Fall: Qualified Codes: W19.XXXA - Unspecified fall, initial encounter Curtis Hills MD Jul 25, 2017 06:42
[2017-07-25 07:52] LABS: ALBUMIN 2.9 GM/DL (3.4-5.0); ALKALINE PHOSPHATASE 59 U/L (45-117); ALT (GPT) 100 U/L (10-53); AST (GOT) 122 U/L (15-37); BICARBONATE 27.6 MEQ/L (21.0-32.0); BLOOD UREA NITROGEN 6 MG/DL (7-18); CALCIUM 8.3 MG/DL (8.5-10.1); CHLORIDE 106 MEQ/L (98-107); CREATININE 0.33 MG/DL (0.50-1.00); GLOMERULAR FILTRATION RATE 249 ML/MIN (>89); GLUCOSE,RANDOM 112 MG/DL (74-106); SODIUM (NA) 142 MEQ/L (136-145); TOTAL BILIRUBIN ADULT 0.4 MG/DL (0.2-1.0); TOTAL PROTEIN 6.1 GM/DL (6.4-8.2)
[2017-07-25] MEDS: INSULIN ASPART SUPPLEMENTAL SCALE SQ SCH ×4 (08:00→21:00)
[2017-07-25] MEDS ORDERED: POTASSIUM CHLORIDE 20 MEQ CONTROLLED RELEASE TAB PO ONE (08:45)
[2017-07-25] MEDS: SODIUM CHLORIDE 0.9% FLUSH 10 ML FLUSH IV FLUSH SCH ×2 (09:00→21:00)
[2017-07-25] MEDS: amLODIPine BESYLATE 5 MG TAB PO SCH (09:24)
[2017-07-25] MEDS: CHOLECALCIFEROL (VIT D3) 1000 UNIT TAB PO SCH (09:24)
[2017-07-25] MEDS: FOLIC ACID 1 MG TAB PO SCH (09:24)
[2017-07-25] MEDS: MULTIVITAMINS/MINERALS THERAPEUTIC TAB PO SCH (09:24)
[2017-07-25] MEDS: DOCUSATE SODIUM 50 MG/SENNA 8.6 MG TAB PO SCH ×2 (09:25→21:00)
[2017-07-25] MEDS: SODIUM BICARBONATE 8.4% INJ 100 MEQ, POTASSIUM CHLORIDE INJ 20 MEQ in SODIUM CHLOR 0.45... IV SCH (12:38)
[2017-07-25] MEDS ORDERED: THERM PO (14:44)
[2017-07-25] MEDS ORDERED: CHOL1000 PO (14:44)
[2017-07-25] MEDS ORDERED: THIA100 PO (14:45)
--- NOTE | 2017-07-25 14:46 | HHI.DCPOC ---
Discharge Care Plan Diagnosis: (1) Rhabdomyolysis (2) Osteoarthritis of hips, bilateral (3) Fall Goals to Promote Your Health * To prevent worsening of your condition and complications * To maintain your health at the optimal level Directions to Meet Your Goals Take your medications as prescribed Follow your dietary instruction Follow activity as directed Keep your appointments as scheduled Take your immunizations and boosters as scheduled If your symptoms worsen call your PCP, if no PCP go to Urgent Care Center or Emergency Room Smoking is Dangerous to Your Health. Avoid second hand smoke Call the 24-hour hour crisis hotline for domestic abuse at Steff Cruz PA-C Jul 25, 2017 14:46
[2017-07-26 00:27] VITALS: BP 148/68; PULSE 80; RESP 18; TEMP 98.8; O2SAT 98
[2017-07-26 03:19] VITALS: BP 107/62; PULSE 74; RESP 12; TEMP 98.1; O2SAT 97
[2017-07-26] MEDS: SODIUM BICARBONATE 8.4% INJ 100 MEQ, POTASSIUM CHLORIDE INJ 20 MEQ in SODIUM CHLOR 0.45... IV SCH ×4 (05:10→23:21)
[2017-07-26] MEDS: THIAMINE INJ 500 MG in SODIUM CHLOR 0.9% 250 ML INJ 250 ML IV SCH ×2 (05:11→14:47)
[2017-07-26] MEDS: HEPARIN SODIUM - SQ 10,000 UNITS/ML VIAL SQ SCH ×2 (05:11→14:45)
[2017-07-26 07:38] LABS: BICARBONATE 28.8 MEQ/L (21.0-32.0); CALCIUM 9.1 MG/DL (8.5-10.1); CREATININE 0.41 MG/DL (0.50-1.00); MAGNESIUM 1.7 MG/DL (1.5-2.5)
[2017-07-26 07:41] VITALS: BP 111/77; PULSE 79; RESP 20; TEMP 97.9; O2SAT 95
[2017-07-26] MEDS: INSULIN ASPART SUPPLEMENTAL SCALE SQ SCH ×4 (08:00→21:00)
--- NOTE | 2017-07-26 08:07 | HHI.PR ---
Subjective Remarks in no acute distress. still with some proximal muscle weakness. no other complaints. Objective Vitals Vital Signs Date Time Temp Pulse Resp B/P (MAP) Pulse Ox O2 Delivery O2 Flow Rate FiO2 07/26/17 07:41 97.9 79 20 111/77 (88) 95 07/26/17 03:19 98.1 74 12 107/62 (77) 97 07/26/17 00:27 98.8 80 18 148/68 (94) 98 07/25/17 20:30 99.2 86 18 113/67 (82) 99 07/25/17 20:00 95 07/25/17 15:00 75 07/25/17 14:53 98.6 86 20 123/76 (92) 100 07/25/17 11:18 98.0 78 20 112/77 (89) 97 I/O 07/25/17 07/25/17 07/25/17 07/26/17 07/26/17 07/26/17 07:00 15:00 23:00 07:00 15:00 23:00 Intake Total 2750 ml Balance 2750 ml Intake Oral 1500 ml IV Total 1250 ml # Voids 6 # Bowel Movements 1 Result Diagram: 07/24/17 0855 07/26/17 0559 Imaging Last Impressions Thoracic Spine MRI 07/24/17523 Signed Impressions: Service Date/Time: Monday, July 24, 2017 06:18 - CONCLUSION: 1. Mild degenerative disease T6-T7 2. No evidence of significant disc protrusion, spinal stenosis, bony abnormality or spinal cord abnormalities. Santi De Leon MD Lumbar Spine MRI 07/24/1724 Signed Impressions: Service Date/Time: Monday, July 24, 2017 06:18 - CONCLUSION: Normal examination. Santi De Leon MD Hip and Pelvis X-Ray 07/24/17 0440 Signed Impressions: Service Date/Time: Monday, July 24, 2017 04:58 - CONCLUSION: 1. Intact pelvis and left hip. 2. Mild bilateral hip osteoarthritis. 3. Moderate osteoarthritis of the pubic symphysis. Adryan Vee MD Hand X-Ray 07/24/17 5170 Signed Impressions: Service Date/Time: Monday, July 24, 2017 05:01 - CONCLUSION: Intact left hand. Adryan Vee MD Objective Remarks GENERAL: This is a well-nourished, well-developed patient, in no apparent distress. CARDIOVASCULAR: Regular rate and regular rhythm without murmurs, gallops, or rubs. RESPIRATORY: Clear to auscultation. Breath sounds equal bilaterally. No wheezes , rales, or rhonchi. GASTROINTESTINAL: Abdomen soft, non-tender, nondistended. Normal, active bowel sounds MUSCULOSKELETAL: Extremities without clubbing, cyanosis, or edema. NEURO: Alert & Oriented x4 to person, place, time, situation. Moves all ext x4 Procedures None Medications and IVs Inpatient Medications Amlodipine Besylate (Norvasc) 2.5 mg DAILY PO Last administered on 07/25/17at 09 :24; Start 07/25/17 at 09:00 Bisacodyl (Dulcolax Supp) 10 mg DAILY PRN RECTAL SEVERE CONSITIPATION; Start at 13:00 Cholecalciferol (Vitamin D3) 1,000 units DAILY PO Last administered on at 09:24; Start 07/25/17 at 09:00 Dextrose (D50w (Vial) Inj) 50 ml UNSCH PRN IV PUSH HYPOGLYCEMIA-SEE COMMENTS; Start 07/24/17 at 13:00 Flumazenil (Romazicon Inj) 0.2 mg Q1M PRN IV PUSH SEE LABEL COMMENTS; Start 03/03 at 16:30 Folic Acid (Folate) 1 mg DAILY PO Last administered on 07/25/17at 09:24; Start 07/25/17 at 09:00; Stop 07/30/17 at 08:59 Glucagon (Glucagon Inj) 1 mg UNSCH PRN OTHER HYPOGLYCEMIA-SEE COMMENTS; Start 07/24/17 at 13:00 Haloperidol Lactate (Haldol Inj) 2 mg Q15M PRN IM SEE LABEL COMMENTS; Start 03/03 at 16:30 Heparin Sodium (Porcine) (Heparin Inj) 5,000 units Q12H SQ Last administered on 07/26/17at 05:11; Start 07/24/17 at 13:00 Insulin Aspart (NovoLOG SUPPLEMENTAL SCALE) 1 ACHS SLIDING SCALE SQ Last administered on 07/25/17at 17:11; Start 07/24/17 at 17:00 Lactulose (Lactulose Liq) 30 ml DAILY PRN PO SEVERE CONSITIPATION; Start at 13:00 Lorazepam (Ativan Inj) 2 mg Q15M PRN IV PUSH CIWA > 20; Start 07/24/17 at 16:30 Lorazepam (Ativan) 2 mg Q2H PRN PO CIWA 11-14; Start 07/24/17 at 16:30 Magnesium Hydroxide (Milk Of Magnesia Liq) 30 ml Q12H PRN PO Mild constipation ; Start 07/24/17 at 13:00 Morphine Sulfate (Morphine Inj) 1 mg Q3H PRN IV PUSH BREAKTHROUGH PAIN; Start 07/24/17 at 13:00 Multivitamins/ Minerals Therapeutic (Theragran M Tab) 1 tab DAILY PO Last administered on 07/25/17at 09:24; Start 07/25/17 at 09:00; Stop 07/30/17 at 08:59 Naloxone HCl (Narcan Inj) 0.4 mg UNSCH PRN IV PUSH SEE LABEL COMMENTS; Start at 13:00 Ondansetron HCl (Zofran Inj) 4 mg Q6H PRN IVP NAUSEA OR VOMITING; Start at 13:00 Potassium Chloride (KCl) 20 meq ONCE ONCE PO Last administered on 07/25/17at 08 :45; Start 07/25/17 at 08:45; Stop 07/25/17 at 08:52; Status DC Senna/Docusate Sodium (Flaquita-Colace) 1 tab BID PO Last administered on at 09:25; Start 07/24/17 at 21:00 Sennosides (Senokot) 17.2 mg Q12H PRN PO Moderate constipation; Start 07/24/17 at 13:00 Sodium Bicarbonate 100 meq/Potassium Chloride 20 meq/ Sodium Chloride 1,110 ml @ 100 mls/hr Q11H6M IV Last administered on 07/26/17at 05:10; Start 07/24/17 at 14:00 Sodium Chloride (NS Flush) 2 ml BID IV FLUSH Last administered on 07/25/17at 09: 00; Start 07/24/17 at 21:00 Thiamine HCl (Vitamin B1) 100 mg DAILY PO ; Start 07/31/17 at 09:00 Thiamine HCl 500 mg/Sodium Chloride 255 ml @ 62.5 mls/hr Q24H IV ; Start at 09:00; Stop 07/31/17 at 08:59 Tramadol HCl (Ultram) 100 mg Q4H PRN PO PAIN SCALE 6 TO 10; Start 07/24/17 at 13:00 A/P Problem List: (1) Rhabdomyolysis ICD Code: M62.82 - Rhabdomyolysis Status: Acute (2) Fall ICD Code: W19.XXXA - Unspecified fall, initial encounter Status: Acute Assessment and Plan Bilateral proximal lower Extremity Weakness and Fall: unclear etiology. -T-spine MRI reviewed, shows mild degenerative disease T6-7; no other acute abnormalities -L-spine MRI reviewed, normal -Hip/Pelvis xray reviewed, show mild bilateral osteoarthritis and moderate osteoarthritis of pubic symphysis -Unremarkable ESR, CRP, TSH, B12. Consider neurology consult -Consult PT, recommended outpatient physical therapy -consult neurology -Fall precautions Rhabdomyolysis: CPK 55299. Suspect secondary to recent fall. This is improving but still significantly elevated . -Continue IVF with NS at 100cc/hr -Monitor CPK and renal function Transaminitis: patient with elevated LFTs, no previous labs to compare. Suspect secondary to patient's daily alcohol use and rhabdomyolysis. A symptomatic -avoid hepatotoxins -repeat LFTs -counseled on alcohol cessation -outpatient f/up Hyperlipidemia/Hypertension: BP currently well controlled. -Hold Lipitor secondary to transaminitis. Restart Norvasc Diabetes Mellitus: -Monitor accu-checks and cover with SSI. Hold hypoglycemics for now Vitamin D deficiency. Start vitamin D 1000 IU daily repeat level in 3 months DVT Prophylaxis: Heparin sq Discharge Planning awaiting neurology evaluation and further improvement in her CPK level. Problem Qualifiers (1) Rhabdomyolysis: Qualified Codes: T79.6XXA - Traumatic ischemia of muscle, initial encounter (2) Fall: Qualified Codes: W19.XXXA - Unspecified fall, initial encounter Francisca Shetty MD Jul 26, 2017 08:07
[2017-07-26] MEDS: DOCUSATE SODIUM 50 MG/SENNA 8.6 MG TAB PO SCH ×3 (09:00→22:03)
[2017-07-26] MEDS: SODIUM CHLORIDE 0.9% FLUSH 10 ML FLUSH IV FLUSH SCH ×2 (09:23→21:00)
[2017-07-26] MEDS: FOLIC ACID 1 MG TAB PO SCH (09:24)
[2017-07-26] MEDS: MULTIVITAMINS/MINERALS THERAPEUTIC TAB PO SCH (09:24)
[2017-07-26] MEDS: CHOLECALCIFEROL (VIT D3) 1000 UNIT TAB PO SCH (09:24)
[2017-07-26] MEDS: amLODIPine BESYLATE 5 MG TAB PO SCH (09:25)
--- NOTE | 2017-07-26 13:35 | MB ---
cc: Coby Farias MD DATE OF CONSULT: 07/26/2017 DATE OF : 1960 REASON FOR CONSULTATION: Proximal muscle weakness. HISTORY OF PRESENT ILLNESS: This is a 57-year-old woman with a history of hypertension, hyperlipidemia., diabetes, has been having some back pain and leg weakness for quite a few months now. 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 She could put her leg up on the chair but she could not lift herself over it. She has trouble getting in and out of a vehicle, climbing steps. She was yesterday at [employer] with her fiance and she tried to go up one step, held on and she fell forward, could not get up. Sometime ago at work she also had an issues where she was on the floor and could not get up. She was trying to pick something up off of the floor. She is followed up by her primary care, Dr. Cardoza, and has done x-rays and was told she has osteoarthritis of the hips. Does have some chronic back pain but her MRI of her lumbar and thoracic spine does not confirm any spinal stenosis or cord compression. She has no incontinence. PAST MEDICAL HISTORY: She has a history of - 1. Hyperlipidemia. 2. Hypertension. 3. Diabetes. FAMILY HISTORY: She is adopted but her mother is diabetic and has COPD. ALLERGIES: None reported. HOME MEDICINES: She is on a statin, Lipitor 20 mg. She has been on this for a few years, she states. Please refer to her med list. SOCIAL HISTORY: She admits to a few drinks of beer per day and occasional cocktails. Denies tobacco or illicit drugs. PHYSICAL EXAMINATION: VITAL SIGNS: Temperature 97.9, pulse 79, respiratory rate 20, blood pressure 111/77. NECK: Supple. No bruits. HEART: Regular. NEUROLOGICAL EXAMINATION: She is awake, alert, oriented and fluent. Pupils reactive. Face symmetrical. Tongue in midline. Visual giron are normal. Motor: Upper extremity: She has fairly good strength, at least 4+/5- proximally as well as distally. Reflexes are 2+; they are not brisk. There is no Sadler sign. Lower extremity strength: She is at best 4/5 proximally as well as distally. DTRs are 1+. Toes - withdraws Sensory is really unremarkable. Gait is withheld at this time. She is sitting at the edge of the bed. Cerebellar is normal. LABORATORY DATA: Her sed rate is 20. CBC is really unremarkable. Chemistries are reviewed. CRP is 0.29. Her sed rate was 20, as stated. Vitamin D is low at 14.4. TSH is 1330. Albumin 2.9. CPK on admission was 11,593, now is 7545. ALT 129, down to 100. AST 151, down to 122. GFR normal, glucose 130. Urine unremarkable. IMAGING: As stated, lumbar unremarkable. Thoracic: Some mild degenerative changes T6, T7. Hand x-ray: Unremarkable. Hip, pelvis x-ray: Intact mild bilateral hip osteoarthritis and moderate osteoarthritis of the pubic symphysis. IMPRESSION AND PLAN: Muscle weakness. I do not think this is a polymyalgia rheumatica. Her imaging was unremarkable. Sed rate and CRP were really unremarkable. Her B12 is a little low; I would supplement that and I would start her on vitamin D. Her vitamin D level is low. I do not believe 1000 units would be enough; I would put her on a higher dose and repeat it in one month. Continue to hydrate her. CPK is trending down. Avoid hepatotoxins. I would stop her statin all together. Stop alcohol. Have physical therapy see her. She will need outpatient PT. If her symptoms do not improve off the statin and hydrating, then she would probably need as an outpatient a muscle biopsy and/or a nerve conduction study. Continue current recommendations. MD VANDANA Gallo/BIPIN , 01:07 PM , 01:33 PM
[2017-07-26] MEDS: CYANOCOBALAMIN 1000 MCG/ML VIAL IM SCH (14:44)
[2017-07-26 20:12] VITALS: PULSE 80
[2017-07-26 20:22] VITALS: BP 116/69; PULSE 80; RESP 16; TEMP 98.2; O2SAT 97
[2017-07-26 23:33] VITALS: BP 121/74; PULSE 72; RESP 16; TEMP 98.3; O2SAT 98
[2017-07-27 00:01] VITALS: PULSE 70
[2017-07-27] MEDS: HEPARIN SODIUM - SQ 10,000 UNITS/ML VIAL SQ SCH (02:31)
[2017-07-27 03:30] VITALS: BP 119/70; PULSE 71; RESP 16; TEMP 98.1; O2SAT 95
[2017-07-27 04:46] VITALS: PULSE 69
[2017-07-27 08:00] VITALS: BP 120/75; PULSE 77; RESP 16; TEMP 98.1; O2SAT 97
[2017-07-27] MEDS: INSULIN ASPART SUPPLEMENTAL SCALE SQ SCH (08:00)
--- NOTE | 2017-07-27 08:20 | HHI.PR ---
Subjective Remarks in no acute distress. denies pain. overall improving. no new complaints. d/w the RN. Objective Vitals Vital Signs Date Time Temp Pulse Resp B/P (MAP) Pulse Ox O2 Delivery O2 Flow Rate FiO2 07/27/17 08:00 98.1 77 16 120/75 (90) 97 07/27/17 04:46 69 07/27/17 03:30 98.1 71 16 119/70 (86) 95 07/27/17 00:01 70 07/26/17 23:33 98.3 72 16 121/74 (90) 98 07/26/17 20:22 98.2 80 16 116/69 (85) 97 07/26/17 20:12 80 Result Diagram: 07/24/17 0855 07/26/1759 Imaging Last Impressions Thoracic Spine MRI 07/24/17523 Signed Impressions: Service Date/Time: Monday, July 24, 2017 06:18 - CONCLUSION: 1. Mild degenerative disease T6-T7 2. No evidence of significant disc protrusion, spinal stenosis, bony abnormality or spinal cord abnormalities. Santi De Leon MD Lumbar Spine MRI 07/24/17523 Signed Impressions: Service Date/Time: Monday, July 24, 2017 06:18 - CONCLUSION: Normal examination. Santi De Leon MD Hip and Pelvis X-Ray 07/24/17439 Signed Impressions: Service Date/Time: Monday, July 24, 2017 04:58 - CONCLUSION: 1. Intact pelvis and left hip. 2. Mild bilateral hip osteoarthritis. 3. Moderate osteoarthritis of the pubic symphysis. Adryan Vee MD Hand X-Ray 07/24/17439 Signed Impressions: Service Date/Time: Monday, July 24, 2017 05:01 - CONCLUSION: Intact left hand. Adryan Vee MD Objective Remarks GENERAL: This is a well-nourished, well-developed patient, in no apparent distress. CARDIOVASCULAR: Regular rate and regular rhythm without murmurs, gallops, or rubs. RESPIRATORY: Clear to auscultation. Breath sounds equal bilaterally. No wheezes , rales, or rhonchi. GASTROINTESTINAL: Abdomen soft, non-tender, nondistended. Normal, active bowel sounds MUSCULOSKELETAL: Extremities without clubbing, cyanosis, or edema. NEURO: Alert & Oriented x4 to person, place, time, situation. Moves all ext x4 Procedures None Medications and IVs Inpatient Medications Amlodipine Besylate (Norvasc) 2.5 mg DAILY PO Last administered on 07/26/17at 09 :25; Start 07/25/17 at 09:00 Bisacodyl (Dulcolax Supp) 10 mg DAILY PRN RECTAL SEVERE CONSITIPATION; Start at 13:00 Cholecalciferol (Vitamin D3) 1,000 units DAILY PO Last administered on at 09:24; Start 07/25/17 at 09:00 Cyanocobalamin (Vitamin B12 Inj) 1,000 mcg DAILY IM Last administered on at 14:44; Start 07/26/17 at 14:00 Dextrose (D50w (Vial) Inj) 50 ml UNSCH PRN IV PUSH HYPOGLYCEMIA-SEE COMMENTS; Start 07/24/17 at 13:00 Flumazenil (Romazicon Inj) 0.2 mg Q1M PRN IV PUSH SEE LABEL COMMENTS; Start 03/03 at 16:30 Folic Acid (Folate) 1 mg DAILY PO Last administered on 07/26/17at 09:24; Start 07/25/17 at 09:00; Stop 07/30/17 at 08:59 Glucagon (Glucagon Inj) 1 mg UNSCH PRN OTHER HYPOGLYCEMIA-SEE COMMENTS; Start 07/24/17 at 13:00 Haloperidol Lactate (Haldol Inj) 2 mg Q15M PRN IM SEE LABEL COMMENTS; Start 03/03 at 16:30 Heparin Sodium (Porcine) (Heparin Inj) 5,000 units Q12H SQ Last administered on 07/27/17at 02:31; Start 07/24/17 at 13:00 Insulin Aspart (NovoLOG SUPPLEMENTAL SCALE) 1 ACHS SLIDING SCALE SQ Last administered on 07/25/17at 17:11; Start 07/24/17 at 17:00 Lactulose (Lactulose Liq) 30 ml DAILY PRN PO SEVERE CONSITIPATION; Start at 13:00 Lorazepam (Ativan Inj) 2 mg Q15M PRN IV PUSH CIWA > 20; Start 07/24/17 at 16:30 Lorazepam (Ativan) 2 mg Q2H PRN PO CIWA 11-14; Start 07/24/17 at 16:30 Magnesium Hydroxide (Milk Of Magnelvis Liq) 30 ml Q12H PRN PO Mild constipation ; Start 07/24/17 at 13:00 Morphine Sulfate (Morphine Inj) 1 mg Q3H PRN IV PUSH BREAKTHROUGH PAIN; Start 07/24/17 at 13:00 Multivitamins/ Minerals Therapeutic (Theragran M Tab) 1 tab DAILY PO Last administered on 07/26/17at 09:24; Start 07/25/17 at 09:00; Stop 07/30/17 at 08:59 Naloxone HCl (Narcan Inj) 0.4 mg UNSCH PRN IV PUSH SEE LABEL COMMENTS; Start at 13:00 Ondansetron HCl (Zofran Inj) 4 mg Q6H PRN IVP NAUSEA OR VOMITING; Start at 13:00 Potassium Chloride (KCl) 20 meq ONCE ONCE PO Last administered on 07/25/17at 08 :45; Start 07/25/17 at 08:45; Stop 07/25/17 at 08:52; Status DC Senna/Docusate Sodium (Flaquita-Colace) 1 tab BID PO Last administered on at 22:03; Start 07/24/17 at 21:00 Sennosides (Senokot) 17.2 mg Q12H PRN PO Moderate constipation; Start 07/24/17 at 13:00 Sodium Bicarbonate 100 meq/Potassium Chloride 20 meq/ Sodium Chloride 1,110 ml @ 100 mls/hr Q11H6M IV Last administered on 07/26/17at 23:21; Start 07/24/17 at 14:00 Sodium Chloride (NS Flush) 2 ml BID IV FLUSH Last administered on 07/25/17at 09: 00; Start 07/24/17 at 21:00 Thiamine HCl (Vitamin B1) 100 mg DAILY PO ; Start 07/31/17 at 09:00 Thiamine HCl 500 mg/Sodium Chloride 255 ml @ 62.5 mls/hr Q24H IV ; Start at 09:00; Stop 07/31/17 at 08:59 Tramadol HCl (Ultram) 100 mg Q4H PRN PO PAIN SCALE 6 TO 10; Start 07/24/17 at 13:00 A/P Problem List: (1) Rhabdomyolysis ICD Code: M62.82 - Rhabdomyolysis Status: Acute (2) Fall ICD Code: W19.XXXA - Unspecified fall, initial encounter Status: Acute Assessment and Plan Bilateral proximal lower Extremity Weakness and Fall: possibly due to statin -T-spine MRI reviewed, shows mild degenerative disease T6-7; no other acute abnormalities -L-spine MRI reviewed, normal -Hip/Pelvis xray reviewed, show mild bilateral osteoarthritis and moderate osteoarthritis of pubic symphysis -Unremarkable ESR, CRP, TSH, B12. Consider neurology consult -Consulted PT, recommended outpatient physical therapy - neurology consult appreciated; recommended that statin to be stopped- possible muscle biopsy and nerve-conduction study as outpatient if no improvement. -Fall precautions Rhabdomyolysis: CPK 25544. Suspect secondary to recent fall. This is improving . -Continue IVF with NS at 100cc/hr -Monitor CPK and renal function Transaminitis: patient with elevated LFTs, no previous labs to compare. Suspect secondary to patient's daily alcohol use and rhabdomyolysis. A symptomatic -avoid hepatotoxins -counseled on alcohol cessation -outpatient f/up Hyperlipidemia/Hypertension: BP currently well controlled. -Hold Lipitor secondary to transaminitis. Restart Norvasc Diabetes Mellitus: -Monitor accu-checks and cover with SSI. Hold hypoglycemics for now Vitamin D deficiency. continue with supplement. DVT Prophylaxis: Heparin sq Discharge Planning dc home today - pending the repeated BMP and CPK level today. see med list. f/u; pcp and neurology. d/w the patient and RN. Problem Qualifiers (1) Rhabdomyolysis: Qualified Codes: T79.6XXA - Traumatic ischemia of muscle, initial encounter (2) Fall: Qualified Codes: W19.XXXA - Unspecified fall, initial encounter Francisca Shetty MD Jul 27, 2017 08:20
[2017-07-27] MEDS ORDERED: CHOL5000 PO (08:22)
[2017-07-27] MEDS ORDERED: CYAN1TAB24 PO (08:22)
--- NOTE | 2017-07-27 08:23 | HHI.DS ---
Discharge Summary Admission Date Jul 24, 2017 at 13:26 Discharge Date: Jul 27, 2017 Admitting Diagnosis rhabdomyolysis, rule out myositis (1) Rhabdomyolysis ICD Code: M62.82 - Rhabdomyolysis Diagnosis: Principal Status: Acute (2) Fall ICD Code: W19.XXXA - Unspecified fall, initial encounter Diagnosis: Principal Status: Acute Procedures None Brief History - From Admission Written by Steff Cruz, acting as scribe for Dr. Hills on 07/24/17 at 14: 35. 57-year-old female with HTN, HLD, DM, presents with 1 year history of worsening low back pain, leg weakness, and recent fall. The patient reports over the past year she's had low back and hip pains, with loss of strength of the bilateral legs. 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 A month ago she picked up a tissue off the floor, and had difficulty standing back up. She saw her PCP Dr. Cardoza as outpatient at that time, had xrays done, and was told she has osteoarthritis in bilateral hips. Over the past month she has been having trouble getting in and out of a car. 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 The patient states last night she went out to dinner with her fiance, had a few cocktails, then had a step up however her legs were unable to do so and they just gave out on her. She states she fell to ground onto her left hip and left hand. She reports continued diffuse low back pain, but mostly complains of bilateral leg weakness. She also reports noticing recent numbness down the left lateral leg. Denies any recent weight loss or specific joint pains. CBC/BMP: 07/24/17 0855 07/26/17 0559 Significant Findings Laboratory Tests Test 07/24/17 08:55 07/24/17 09:00 07/25/17 06:10 07/26/17 05:59 Red Blood Count 3.94 MIL/MM3 (4.00-5.30) Lymphocytes (%) (Auto) 49.6 % (9.0-44.0) Creatinine 0.45 MG/DL (0.50-1.00) 0.33 MG/DL (0.50-1.00) 0.41 MG/DL (0.50-1.00) Random Glucose 117 MG/DL (74-106) 112 MG/DL (74-106) 130 MG/DL (74-106) Aspartate Amino Transf (AST/SGOT) 151 U/L (15-37) 122 U/L (15-37) Alanine Aminotransferase (ALT/SGPT) 129 U/L (10-53) 100 U/L (10-53) Chloride Level 108 MEQ/L (98-107) Total Creatine Kinase 50079 U/L (26-192) 8817 U/L (26-192) 7545 U/L (26-192) Creatine Kinase MB 412.2 NG/ML (0.5-3.6) 309.2 NG/ML (0.5-3.6) 238.5 NG/ML (0.5-3.6) 25-Hydroxy Vitamin D Total 14.4 ng/ML (30-100) Urine Bacteria OCC /hpf (NONE) Urine Mucus MOD /lpf (OCC) Blood Urea Nitrogen 6 MG/DL (7-18) 5 MG/DL (7-18) Total Protein 6.1 GM/DL (6.4-8.2) Albumin 2.9 GM/DL (3.4-5.0) Calcium Level 8.3 MG/DL (8.5-10.1) Imaging Last Impressions Thoracic Spine MRI 07/24/17523 Signed Impressions: Service Date/Time: Monday, July 24, 2017 06:18 - CONCLUSION: 1. Mild degenerative disease T6-T7 2. No evidence of significant disc protrusion, spinal stenosis, bony abnormality or spinal cord abnormalities. Santi De Leon MD Lumbar Spine MRI 07/24/17523 Signed Impressions: Service Date/Time: Monday, July 24, 2017 06:18 - CONCLUSION: Normal examination. Santi De Leon MD Hip and Pelvis X-Ray 07/24/17 1980 Signed Impressions: Service Date/Time: Monday, July 24, 2017 04:58 - CONCLUSION: 1. Intact pelvis and left hip. 2. Mild bilateral hip osteoarthritis. 3. Moderate osteoarthritis of the pubic symphysis. Adryan Vee MD Hand X-Ray 07/24/17 0440 Signed Impressions: Service Date/Time: Wednesday, July 24, 2017 05:01 - CONCLUSION: Intact left hand. Adryan Vee MD PE at Discharge GENERAL: This is a well-nourished, well-developed patient, in no apparent distress. CARDIOVASCULAR: Regular rate and regular rhythm without murmurs, gallops, or rubs. RESPIRATORY: Clear to auscultation. Breath sounds equal bilaterally. No wheezes , rales, or rhonchi. GASTROINTESTINAL: Abdomen soft, non-tender, nondistended. Normal, active bowel sounds MUSCULOSKELETAL: Extremities without clubbing, cyanosis, or edema. NEURO: Alert & Oriented x4 to person, place, time, situation. Moves all ext x4 Hospital Course Bilateral proximal lower Extremity Weakness and Fall: possibly due to statin -T-spine MRI reviewed, shows mild degenerative disease T6-7; no other acute abnormalities -L-spine MRI reviewed, normal -Hip/Pelvis xray reviewed, show mild bilateral osteoarthritis and moderate osteoarthritis of pubic symphysis -Unremarkable ESR, CRP, TSH, B12. Consider neurology consult -Consulted PT, recommended outpatient physical therapy - neurology consult appreciated; recommended that statin to be stopped- possible muscle biopsy and nerve-conduction study as outpatient if no improvement. -Fall precautions Rhabdomyolysis: CPK 15474. Suspect secondary to recent fall. This is improving . -Continue IVF with NS at 100cc/hr -Monitor CPK and renal function Transaminitis: patient with elevated LFTs, no previous labs to compare. Suspect secondary to patient's daily alcohol use and rhabdomyolysis. A symptomatic -avoid hepatotoxins -counseled on alcohol cessation -outpatient f/up Hyperlipidemia/Hypertension: BP currently well controlled. -Hold Lipitor secondary to transaminitis. Restart Norvasc Diabetes Mellitus: -Monitor accu-checks and cover with SSI. Hold hypoglycemics for now Vitamin D deficiency. continue with supplement. DVT Prophylaxis: Heparin sq Pt Condition on Discharge: Fair Discharge Disposition: Discharge Home Discharge Time: <= 30 minutes Discharge Instructions DIET: Follow Instructions for: Heart Healthy Diet, Diabetic Diet Activities you can perform: Regular-No Restrictions Francisca Shetty MD Jul 27, 2017 08:23
[2017-07-27] MEDS ORDERED: THIAMINE INJ 500 MG in SODIUM CHLOR 0.9% 250 ML INJ 250 ML IV SCH (09:00)
[2017-07-27] MEDS: MULTIVITAMINS/MINERALS THERAPEUTIC TAB PO SCH (09:27)
[2017-07-27] MEDS: amLODIPine BESYLATE 5 MG TAB PO SCH (09:28)
[2017-07-27] MEDS: CHOLECALCIFEROL (VIT D3) 1000 UNIT TAB PO SCH (09:28)
[2017-07-27] MEDS: SODIUM CHLORIDE 0.9% FLUSH 10 ML FLUSH IV FLUSH SCH (09:28)
[2017-07-27] MEDS: CYANOCOBALAMIN 1000 MCG/ML VIAL IM SCH (09:28)
[2017-07-27] MEDS: FOLIC ACID 1 MG TAB PO SCH (09:28)
[2017-07-27] MEDS: DOCUSATE SODIUM 50 MG/SENNA 8.6 MG TAB PO SCH (09:28)
[2017-07-27 10:24] LABS: BICARBONATE 30.1 MEQ/L (21.0-32.0); CALCIUM 9.3 MG/DL (8.5-10.1); CREATININE 0.47 MG/DL (0.50-1.00)
[2017-07-27 12:00] VITALS: BP 120/63; PULSE 77; RESP 16; TEMP 98.3; O2SAT 98
--- NOTE | 2017-07-27 12:23 | HHI.PR ---
Addendum To [facility] Progress Not Reason for addendum: Additonal documentation (BMP and CPK is resulted. CPK elevated. however the patient is clinically doing much better with improvement in her weakness. advised the patient to stay one more day for further IV hydration. but the patient wants to go home. advised to increaes her po fluid intake. script for repeated renal function and CPK was given to the patient to be done within the next 3-4 days with f/u with PCP.) Francisca Shetty MD Jul 27, 2017 12:23
[2017-07-31] MEDS ORDERED: THIAMINE HCL 100 MG TAB PO SCH (09:00)
== END 2017-07-27 12:56 | disposition home or self-care (01) | DRG 558 ==
LOC: NEPE 01:19 → NEDA 13:26 → OBSVTOIN 14:16 → NEPFCDU 14:39
PROVIDERS: ADMIT Internal Medicine; ATTEND Internal Medicine
DX: M62.82 Rhabdomyolysis (principal); I10 Essential (primary) hypertension; R74.0 Nonspecific elevation of levels of transaminase and lactic acid dehydrogenase [LDH]; R74.8 Abnormal levels of other serum enzymes; E11.9 Type 2 diabetes mellitus without complications; E55.9 Vitamin D deficiency, unspecified; M54.5 Low back pain; G89.29 Other chronic pain; M16.0 Bilateral primary osteoarthritis of hip; E78.5 Hyperlipidemia, unspecified; M62.81 Muscle weakness (generalized); W18.30XA Fall on same level, unspecified, initial encounter
CPT/HCPCS: 72146; 72148; 73130; 73502; 80048; 80053; 81001; 82306; 82550; 82552; 82607; 82948; 83735; 84443; 85025; 85652; 86140; J1644; J1815; J3411; J3420; J3480; J7030; J7050